=== PATIENT | female | born 1990 | race Caucasian/White ===

== ENCOUNTER 2018-07-18 18:00 | Inpatient (IN) ==
[2018-07-18] MEDS ORDERED: PEPCID PO ONE (18:59)
[2018-07-18] MEDS ORDERED: KEFZOL 1 GM/D5W 1 GM/50 ML IVPB IV PRN (18:59)
[2018-07-18] MEDS ORDERED: BRETHINE SUBQ PRN (18:59)
[2018-07-18] MEDS ORDERED: AMBIEN PO PRN (18:59)
[2018-07-18] MEDS ORDERED: ZOFRAN IV PRN (18:59)
[2018-07-18] MEDS ORDERED: STADOL IV PRN ×2 (18:59)
[2018-07-18] MEDS ORDERED: REGLAN PO ONE (18:59)
[2018-07-18] MEDS ORDERED: PEPCID IV PRN (18:59)
[2018-07-18] MEDS ORDERED: PEPCID PO PRN (18:59)
[2018-07-18] MEDS ORDERED: TYLENOL PO PRN (18:59)
[2018-07-18] MEDS: LR 1,000 ML IV ONE (20:00)
[2018-07-18] MEDS ORDERED: CYTOTEC PO ONE (20:00)
[2018-07-18 20:48] LABS: BASO# 0.02 X1000 (0.0-0.2); BASO% 0.3 % (0.0-0.8); EOS# 0.06 X1000 (0.0-0.7); EOS% 0.8 % (0.0-10.0); HEMATOCRIT 32.7 % (37.0-47.0); HEMOGLOBIN 10.8 g/dL (12.0-16.0); IMM GRAN# 0.04 X1000 (0.0-0.04); IMM GRAN% 0.5 % (0.0-0.5); LYMPH# 2.16 X1000 (1.2-3.4); MCH 29.6 PG (27-31); MCV 89.6 FL (81-99); MONO# 0.95 X1000 (0.11-0.59); MONO% 11.9 % (1.7-9.3); MPV 11.4 FL (7.4-10.4); NEUT# 4.76 X1000 (1.4-6.5); NEUT% 59.5 % (42.2-75.2); PLT 225 X1000 (130-400); RBC 3.65 XMIL (4.2-5.4); RDW 18.6 % (11.5-14.5); WBC 7.99 X1000 (4.8-10.8)
--- NOTE | 2018-07-18 22:36 | HISTORY AND PHYSICAL ---
HISTORY OF PRESENT ILLNESS: The patient is a 27-year-old, white female, , who will be 39 weeks on 07/19/2014. The patient has had limited care. Group B strep culture was negative. Patient was recently started on Zoloft for depression. PAST MEDICAL HISTORY: Significant for depression as noted above. PAST SURGICAL HISTORY: Dental surgery. PAST OB HISTORY: G2, P1 spontaneous vaginal delivery, proven 5 pounds 6 ounces. [employer] HISTORY: Menarche at age 11. FAMILY HISTORY: Significant for diabetes mellitus, and myocardial infarction. REVIEW OF SYSTEMS: Positive for migraines, but has improved during . SOCIAL HISTORY: Tobacco use none. Alcohol use none. MEDICATIONS: Zoloft 75 mg daily. vitamin and iron. ALLERGIES: To latex. PHYSICAL EXAMINATION: VITAL SIGNS: Height 5 feet 1 inch, weight 176 pounds. Temperature 96.6, blood pressure 127/63, pulse 101, respirations 18, heart rate 151. HEENT: Pupils equal, round, reactive to light and accommodation. Extraocular movements intact. Oropharynx clear. NECK: Supple. No thyromegaly. LUNGS: Clear to auscultation. HEART: Regular rate and rhythm. ABDOMEN: Gravid, nontender. PELVIC: Cervix was 1 cm dilated, 50% effaced, and high. Vertex presentation was demonstrated on ultrasound on the previous day's office visit. EXTREMITIES: No clubbing, cyanosis, or edema noted. DTRs 2+ bilaterally. ASSESSMENT AND PLAN: Intrauterine who will be 39 weeks on 07/19 for induction of labor. The patient will be admitted for Cytotec cervical ripening and move toward Pitocin as she moves into labor. Her group B strep culture was negative. cc: Hood Chang III, MD
[2018-07-18] MEDS ORDERED: CYTOTEC PO SCH (22:59)
[2018-07-19] MEDS ORDERED: CYTOTEC PO ONE
[2018-07-19] MEDS: PITOCIN 30 UNITS/NS 30 UNIT/500 ML IV.SOLN IV SCH (08:35)
[2018-07-19] MEDS: LR 1,000 ML IV ONE ×2 (09:41→16:58)
[2018-07-19] MEDS: STADOL IV PRN ×2 (13:05→16:12)
[2018-07-19] MEDS ORDERED: FENTANYL-BUPIV-NS 2 MCG-0.1% 200 ML EPIDURAL SCH (15:00)
[2018-07-19] MEDS ORDERED: NAROPIN 0.2% INJ ONE (15:00)
[2018-07-19] MEDS ORDERED: XYLOCAINE-MPF 1% INJ PRN (16:23)
[2018-07-19] MEDS ORDERED: MINERAL OIL SCH (16:30)
[2018-07-19 18:58] LABS: URINE SOURCE VOIDED
[2018-07-19 19:06] LABS: BILIRUBIN URINE NEGATIVE (NEGATIVE); BLOOD URINE 3+ (NEGATIVE); GLUCOSE URINE NEGATIVE (NEGATIVE); KETONE URINE 2+(Moderate) mg/dL (NEGATIVE); LEUKOCYTES URINE NEGATIVE (NEGATIVE); NITRITE URINE NEGATIVE (NEGATIVE); PROTEIN URINE NEGATIVE (NEGATIVE); UROBILINOGEN URINE NORMAL
[2018-07-19 19:07] LABS: CLARITY CLEAR (CLEAR); COLOR YELLOW
[2018-07-19 19:17] LABS: UR AMPHETAMINES QUAL NONE DETECTED (NONE DETECT); UR BARBITUATES QUAL NONE DETECTED (NONE DETECT); UR BENZODIAZEPIN QUAL NONE DETECTED (NONE DETECT); UR CANNABINOIDS QUAL NONE DETECTED (NONE DETECT); UR COCAINE QUAL NONE DETECTED (NONE DETECT); UR METHADONE QUAL NONE DETECTED (NONE DETECT); UR METHAMPHETAMINE QUAL NONE DETECTED (NONE DETECT); UR OPIATES QUAL NONE DETECTED (NONE DETECT); UR OXYCODONE QUAL NONE DETECTED (NONE DETECT); UR PCP QUAL NONE DETECTED (NONE DETECT); UR PROPOXYPHENE QUAL NONE DETECTED (NONE DETECT); UR TCA QUAL NONE DETECTED (NONE DETECT)
[2018-07-20] MEDS ORDERED: LR 2,000 ML ONE ×2 (06:58→11:08)
[2018-07-20] MEDS ORDERED: NAROPIN 0.2% INJ ONE (07:02)
[2018-07-20] MEDS ORDERED: EPHEDRINE IV ONE ×2 (08:55→09:06)
[2018-07-20] MEDS: LR 1,000 ML IV ONE (09:15)
[2018-07-20] MEDS: PITOCIN 30 UNITS/NS 30 UNIT/500 ML IV.SOLN IV SCH (09:30)
[2018-07-20] MEDS ORDERED: SODIUM CHLORIDE 0.9% 10 ML ONE (09:45)
[2018-07-20] MEDS ORDERED: LR 500 ML IV ONE (15:36)
[2018-07-20] MEDS ORDERED: REGLAN PO ONE (15:36)
[2018-07-20] MEDS ORDERED: STADOL IV PRN (15:36)
[2018-07-20] MEDS ORDERED: LR 1,000 ML IV SCH (15:45)
[2018-07-20] MEDS ORDERED: PITOCIN 30 UNITS/NS 30 UNIT/500 ML IV.SOLN IV SCH ×2 (15:45→17:15)
[2018-07-20] MEDS ORDERED: PITOCIN 20 UNITS/NS 20 UNITS/1,000 ML IV.SOLN ONE (15:57)
[2018-07-20] MEDS ORDERED: ATARAX PO PRN (17:02)
[2018-07-20] MEDS ORDERED: HYDROXYZINE IM PRN (17:02)
[2018-07-20] MEDS ORDERED: AMBIEN PO PRN (17:02)
[2018-07-20] MEDS ORDERED: BENADRYL IV PRN (17:02)
[2018-07-20] MEDS ORDERED: CYTOTEC PO PRN (17:02)
[2018-07-20] MEDS ORDERED: XYLOCAINE-MPF 1% INJ PRN (17:02)
[2018-07-20] MEDS ORDERED: PITOCIN IM PRN (17:02)
[2018-07-20] MEDS ORDERED: MINERAL OIL PO PRN (17:02)
[2018-07-20] MEDS ORDERED: BOOSTRIX VACCINE IM ONE (17:02)
[2018-07-20] MEDS ORDERED: M-M-R II VACCINE SUBQ ONE (17:02)
[2018-07-20] MEDS ORDERED: PERI MEDS (DERMOPLAST/NUPERCAINAL/TUCKS) MISC PRN (17:02)
[2018-07-20] MEDS ORDERED: BENADRYL PO PRN (17:02)
[2018-07-20] MEDS ORDERED: NORCO-5 PO PRN (17:02)
[2018-07-20] MEDS ORDERED: PITOCIN 20 UNITS/NS 20 UNITS/1,000 ML IV.SOLN IV SCH (17:15)
--- NOTE | 2018-07-20 19:23 | OPERATIVE NOTE ---
PROCEDURE DATE: 07/20/2018 DESCRIPTION OF PROCEDURE: Mrs. Thornton is a 27-year-old, 2, para 1, at 39 weeks and 1 day. She progressed to complete-complete and +3 under epidural anesthesia with Cytotec followed by Pitocin induction. She had a spontaneous vaginal delivery of an infant male over a midline second-degree laceration. Placenta was delivered spontaneously with trailing membranes. The second-degree laceration was repaired with 2-0 chromic in the usual fashion. There were no complications. Infant male, 9 and 10 scores, nursery. ESTIMATED BLOOD LOSS: 300 mL COUNTS: Correct sponge, needle and instrument counts x3. cc: MD Hood Jj III, MD
[2018-07-20] MEDS: NORCO-10 PO PRN (20:18)
[2018-07-20] MEDS: PERICOLACE PO SCH (20:18)
[2018-07-20] MEDS: MOTRIN PO PRN (20:18)
--- NOTE | 2018-07-21 06:35 | OB/GYN PROGRESS NOTE ---
Progress Note OB - . Patient Problems: Current Active Problems Problem Status Onset Vaginal delivery Acute OB Progress Note: Vital Signs - 24 hr 07/20/18 15:40 07/20/18 15:50 07/20/18 16:00 Temperature 98.7 F Pulse Rate 97 H 93 H 92 H Respiratory Rate 20 20 20 Blood Pressure Blood Pressure [Left Arm] 115/63 106/58 111/57 O2 Sat by Pulse Oximetry 95 96 95 07/20/18 16:10 07/20/18 16:20 07/20/18 16:30 Temperature Pulse Rate 98 H 82 90 Respiratory Rate 20 20 20 Blood Pressure Blood Pressure [Left Arm] 119/93 122/75 119/67 O2 Sat by Pulse Oximetry 98 97 97 07/20/18 16:40 07/20/18 19:10 07/20/18 19:50 Temperature 98.3 F Pulse Rate 83 96 H 93 H Respiratory Rate 20 20 20 Blood Pressure 115/66 125/65 112/65 Blood Pressure [Left Arm] 115/66 O2 Sat by Pulse Oximetry 98 96 97 07/20/18 20:55 07/21/18 00:00 07/21/18 03:50 Temperature 97.7 F 96.3 F L Pulse Rate 105 H 91 H 75 Respiratory Rate 16 18 20 Blood Pressure 121/76 113/64 Blood Pressure [Left Arm] O2 Sat by Pulse Oximetry 96 99 98 HPI: Pt seen and examined. Currently w/o complaints. Pain well controlled. Reports abdominal cramping with breast pumping. Ambulating and urinating w/o difficulty. Tolerating regular diet. Denies fever/chills/N/V. +breast/bottle feeding and decreased lochia. VS: please see above GEN: NAD CV: +S1S2 RESP: CTABL ABD: soft NTTP, FF at umbilicus EXT: neg CT Hgb pending A/P: 27yo PPD#1 s/p -post delivery H/H pending -OOB-->ambulation -Regular diet -con't routine PP care
[2018-07-21 06:47] LABS: BASO# 0.02 X1000 (0.0-0.2); BASO% 0.2 % (0.0-0.8); EOS# 0.05 X1000 (0.0-0.7); EOS% 0.6 % (0.0-10.0); HEMOGLOBIN 9.4 g/dL (12.0-16.0); IMM GRAN# 0.01 X1000 (0.0-0.04); IMM GRAN% 0.1 % (0.0-0.5); LYMPH# 2.03 X1000 (1.2-3.4); LYMPH% 23.2 % (20.5-51.1); MCH 28.9 PG (27-31); MCHC 31.3 g/dL (33-37); MCV 92.3 FL (81-99); MONO# 0.68 X1000 (0.11-0.59); MONO% 7.8 % (1.7-9.3); MPV 10.9 FL (7.4-10.4); NEUT# 5.95 X1000 (1.4-6.5); NEUT% 68.1 % (42.2-75.2); PLT 185 X1000 (130-400); RBC 3.25 XMIL (4.2-5.4); RDW 18.8 % (11.5-14.5); WBC 8.74 X1000 (4.8-10.8)
[2018-07-21] MEDS ORDERED: PEPCID PO SCH (15:30)
[2018-07-21] MEDS: NORCO-10 PO PRN (15:34)
[2018-07-21] MEDS: MOTRIN PO PRN (22:01)
[2018-07-21] MEDS: PERICOLACE PO SCH (22:01)
--- NOTE | 2018-07-22 09:06 | OB/GYN PROGRESS NOTE ---
Progress Note OB - . 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 She has required a few doses of Rolfe and comfortable with taking only Ibuprofen after discharge. Other ROS is clear. Tolerating regular diet. Denies fever/chills/N/V. She is supplementing breast feeding She receives iron infusion at [facility] and follow up for her next dose. She suspended SSRI doses and is followed by a therapist for Sertraline 50 mg which she has resumed since delivery. She has sufficient doses until scheduled follow up in late July and understands indications for early return. She denies depressed mood, anxiety, suicidal or homicidal ideation. VS: please see above GEN: NAD. Interacting appropriately with CV: RRR RESP: Nl respiratory effort ABD: soft EXT: trace edema Laboratory Last Values WBC 8.74 X1000 (4.8-10.8) 07/21/18 06:30 RBC 3.25 XMIL (4.2-5.4) L 07/21/18 06:30 Hgb 9.4 g/dL (12.0-16.0) L 07/21/18 06:30 Hct 30.0 % (37.0-47.0) L 07/21/18 06:30 MCV 92.3 FL (81-99) 07/21/18 06:30 MCH 28.9 PG (27-31) 07/21/18 06:30 MCHC 31.3 g/dL (33-37) L 07/21/18 06:30 RDW Std Deviation 18.8 % (11.5-14.5) H 07/21/18 06:30 Plt Count 185 X1000 (130-400) 07/21/18 06:30 MPV 10.9 FL (7.4-10.4) H 07/21/18 06:30 Immature Gran % (Auto) 0.1 % (0.0-0.5) 07/21/18 06:30 Neut % (Auto) 68.1 % (42.2-75.2) 07/21/18 06:30 Lymph % (Auto) 23.2 % (20.5-51.1) 07/21/18 06:30 Cottle % (Auto) 7.8 % (1.7-9.3) 07/21/18 06:30 Eos % (Auto) 0.6 % (0.0-10.0) 07/21/18 06:30 Baso % (Auto) 0.2 % (0.0-0.8) 07/21/18 06:30 Immature Gran # (Auto) 0.01 X1000 (0.0-0.04) 07/21/18 06:30 Neut # (Auto) 5.95 X1000 (1.4-6.5) 07/21/18 06:30 Lymph # (Auto) 2.03 X1000 (1.2-3.4) 07/21/18 06:30 Cottle # (Auto) 0.68 X1000 (0.11-0.59) H 07/21/18 06:30 Eos # (Auto) 0.05 X1000 (0.0-0.7) 07/21/18 06:30 Baso # (Auto) 0.02 X1000 (0.0-0.2) 07/21/18 06:30 Urine Source VOIDED 07/19/18 18:57 Urine Color YELLOW 07/19/18 18:57 Urine Clarity CLEAR (CLEAR) 07/19/18 18:57 Urine pH 7.0 07/19/18 18:57 Ur Specific [place] 1.000 07/19/18 18:57 Urine Protein NEGATIVE mg/dL (NEGATIVE) 07/19/18 18:57 Urine Ketones 2+(Moderate) mg/dL (NEGATIVE) A 07/19/18 18:57 Urine Blood 3+ (NEGATIVE) A 07/19/18 18:57 Urine Nitrite NEGATIVE (NEGATIVE) 07/19/18 18:57 Urine Bilirubin NEGATIVE (NEGATIVE) 07/19/18 18:57 Urine Urobilinogen NORMAL mg/dL 07/19/18 18:57 Urine WBC NEGATIVE (NEGATIVE) 07/19/18 18:57 Urine Glucose NEGATIVE mg/dL (NEGATIVE) 07/19/18 18:57 Urine Opiates Screen NONE DETECTED (NONE DETECT) 07/19/18 18:57 Ur Oxycodone Screen NONE DETECTED (NONE DETECT) 07/19/18 18:57 Urine Methadone Screen NONE DETECTED (NONE DETECT) 07/19/18 18:57 U Propoxyphene Qual NONE DETECTED (NONE DETECT) 07/19/18 18:57 Ur Barbituates Screen NONE DETECTED (NONE DETECT) 07/19/18 18:57 Ur Tricyclics Screen NONE DETECTED (NONE DETECT) 07/19/18 18:57 Ur Phencyclidine Scrn NONE DETECTED (NONE DETECT) 07/19/18 18:57 Ur Amphetamines Screen NONE DETECTED (NONE DETECT) 07/19/18 18:57 U Methamphetamines Scrn NONE DETECTED (NONE DETECT) 07/19/18 18:57 U Benzodiazepines Scrn NONE DETECTED (NONE DETECT) 07/19/18 18:57 Urine Cocaine Screen NONE DETECTED (NONE DETECT) 07/19/18 18:57 U Cannabinoids Screen NONE DETECTED (NONE DETECT) 07/19/18 18:57 RPR NON-REACTIVE (NONREACTIVE) 07/18/18 19:55 A/P: 27yo PPD#2 s/p H/O depression, feeling well, resuming Sertraline 50 mg yesterday Anemia of managed with infusions through [facility] I reviewed full discharge precautions, meds, limitations, including return to work 4 weeks requested, interval laparoscopic salpingectomy requested for permanent sterilization
[2018-07-22 12:43] VITALS: BP 129/77
--- NOTE | 2018-07-22 14:26 | DISCHARGE SUMMARY ---
ADMISSION DATE: 07/18/2018 DISCHARGE DATE: 07/22/2018 ADMITTING DIAGNOSIS: 39 week , scheduled induction at term. DISCHARGE DIAGNOSES: 1. 39 week , delivered, without complication. 2. Anemia of . 3. Limited care. 4. Depression, stable on current medication. 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 Full details of the past medical, social, family, and course are listed on the record. HOSPITAL COURSE: Admitting laboratory included a hemoglobin of 9.4. Urine drug screen and RPR negative. Urinalysis unremarkable for late . She underwent misoprostol followed by oxytocin sequential induction and proceeded to an uncomplicated delivery on 07/20/2018 with a male over a second degree laceration repaired with 2-0 chromic. Estimated blood loss was 300 mL. scores were 9 and 10. Amy has done well, supplementing breast feeding with formula and denying any mood difficulties. She has displayed normal bladder habits, moderate lochia, and obtained good analgesia with oral medications. DISPOSITION: Amy verbalizes good understanding of the discharge precautions I provided today including medications, physical limitations, return to work in 4 weeks if requested, and desire for interval laparoscopic bilateral salpingectomy after her 6 week return visit to Dr. Chang. She verbalized good understanding of the need to return to her psychiatrist with any worsening of mood including anxiety or depression and promises to continue Zoloft 50 mg daily and return as needed or as scheduled by the end of this month to her psychiatrist. cc: Hood Chang III, MD
== END 2018-07-22 12:10 | disposition home or self-care (01) | DRG 807 ==
LOC: P.LD 18:57
PROVIDERS: ADMIT Obstetrics & Gynecology; ATTEND Obstetrics & Gynecology
CPT/HCPCS: 80104; 80301; 80305; 81003; 85025; 86592; A9270; G0431; G0434; G0477; J0595; J2405; J2590; J2795; J7120